=== PATIENT | male | born 1980 | race Caucasian/White ===

== ENCOUNTER 2021-01-19 00:17 | Emergency (ER) | payer SELFPAY ==
[2021-01-19 00:21] VITALS: BP 173/108; PULSE 106; RESP 16; TEMP 36.6
[2021-01-19 01:05] LABS: Basophils Absolute Auto 0.1 K/mm3 (0.0-0.1); Basophils Percent Auto 0.4 % (0.2-1.2); Eosinophils Absolute Auto 0.3 K/mm3 (0-0.3); Eosinophils Percent Auto 2.8 % (0-4.4); Hematocrit 43.7 % (42.0-52.0); Hemoglobin 14.6 g/dL (14.0-18.0); Immature Granulocyte Absolute 0.08 K/mm3 (0.00-0.031); Immature Granulocyte Percent A 0.7 % (0-0.5); Lymphocytes Absolute Auto 1.61 K/mm3 (0.9-3.2); Lymphocytes Percent Auto 14.2 % (18.3-44.2); Mean Corpuscular HGB Conc 33.4 g/dl (32-36); Mean Corpuscular Volume 95.8 fl (80-100); Mean Platelet Volume 10.1 fl (7.4-10.4); Monocytes Absolute Auto 0.9 K/mm3 (0.1-0.6); Monocytes Percent Auto 8.1 % (2.6-8.5); Neutrophils Absolute Auto 8.4 K/mm3 (1.3-6.7); Neutrophils Percent Auto 73.8 % (45.5-73.1); Platelet Count Result 224 k/mm3 (150-375); Red Blood Count 4.56 M/mm3 (4.6-6.20); Red Cell Distribution Width 12.5 % (11.5-14.5); White Blood Count 11.4 K/mm3 (4.5-10.0)
[2021-01-19 01:17] LABS: Alanine Aminotransferase 27 U/L (4-50); Albumin Level 4.2 g/dL (3.5-5.1); Alkaline Phosphatase 66 U/L (38-126); Anion Gap 4 mmol/L (8-16); Aspartate Amino Transferase 27 U/L (17-59); Bilirubin,Total 0.3 mg/dL (0.2-1.3); Blood Urea Nitrogen 24 mg/dL (9-20); Calcium 9.6 mg/dL (8.4-10.2); Carbon Dioxide 28 mmol/L (22-30); Chloride 102 mmol/L (98-107); Estimated Glomerular Filt Rate > 60; Glucose 129 mg/dL (65-110); Potassium 3.7 mmol/L (3.4-5.0); Sodium 134 mmol/L (137-145)
--- NOTE | 2021-01-19 01:24 | ED.LOWEXIN ---
HPI - Extremity Injury (Lower) General Chief Complaint: Extremity Injury, Lower Stated Complaint: lower extremity swelling Time Seen by Provider: 01/19/21 00:40 Source: patient History of Present Illness HPI Narrative: Patient presents with bilateral lower extremity swelling and pain. reorts is been present since yesterday. Reports he was working outside a lot in the [place] yesterday and cuts his legs frequently. He was trying to manage her symptoms at home with screenings and elevation however is swelling got worse so he came to the ER for evaluation. Denies fevers, chills, nausea, vomiting, diarrhea. He denies any chest pain or shortness of breath denies any prior history of kidney or liver disorders Related Data Allergies Allergy/AdvReac Type Severity Reaction Status Date / Time No Known Allergies Allergy Verified 01/19/21 00:26 Review of Systems Review of Systems: CONSTITUTIONAL: Denies fever, chills, or sweats. EYES: Denies visual changes, redness, or discharge. ENT: Denies rhinorrhea, congestion, sore throat, or otalgia. CARDIOVASCULAR: Denies chest pain, palpitations, or edema. RESPIRATORY: Denies cough or dyspnea. GASTROINTESTINAL: Denies abdominal pain, nausea, vomiting, or diarrhea. GENITOURINARY: Denies dysuria or hematuria. SKIN: Denies rash or itching. MUSCULOSKELETAL: Denies back pain, joint pain, or myalgia. NEUROLOGIC: Denies headache, numbness, dizziness, or weakness. PSYCHIATRIC: Denies anxiety or depression. All systems reviewed & are unremarkable except as noted in HPI and below PMFSH Past Medical History Medical History (Updated 01/19/21 @ 01:28 by Benjamin Swift MD) Patient denies significant medical history Social History Social History (Updated 01/19/21 @ 01:25 by Benjamin Swift MD) Substance use: never Exam Narrative: GENERAL: Well-appearing, well-nourished, and in no acute distress. HEAD: Normocephalic, atraumatic. EYES: PERRLA and EOMI. ENT: Nares clear, no rhinorrhea or epistaxis. Mucous membranes moist. NECK: Supple. No masses. No JVD CHEST: Clear to auscultation. No respiratory distress. No wheezes rales or rhonchi HEART: Regular rate and rhythm. No murmur heard. Normal peripheral pulses. ABDOMEN: Soft, nontender, nondistended, normal active bowel sounds. EXTREMITIES: Erythema and warmth to the bilateral distal lower leg associated with pitting edema. Erythema and warmth is predominant around superficial abrasions to the bilateral legs. SKIN: Warm, dry, no rash. NEURO: No focal deficits. Alert and oriented x3. PSYCH: Normal mood and affect. Course Reevaluation(s) Reevaluation #1: Patient is sleeping comfortably easily awoke results and plan reviewed with patient. Patient is comfortable with outpatient plan. 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 Date: 01/19/21 Time: 01:26 Vital Signs Vital signs: Vital Signs Temperature 36.6 C 01/19/21 00:21 Pulse Rate 106 H 01/19/21 00:21 Respiratory Rate 16 01/19/21 00:21 Blood Pressure 173/108 H 01/19/21 00:21 Temperature 36.6 C 01/19/21 00:21 Pulse Rate 106 H 01/19/21 00:21 Respiratory Rate 16 01/19/21 00:21 Blood Pressure 173/108 H 01/19/21 00:21 MDM - Extremity Injury (Lower) MDM Narrative Medical decision making narrative: H&P as above, vss, pt looks clinically well, exam warmth tenderness and edema to the bilateral lower extremities, labs with minimal elevation in WBCs otherwise clinically unremarkable, additional labs/img considered, symptomatic relief available as needed, on reevaluation pt continues to looks clinically well. Suspect cellulitis, dns osteomyelitis CHF kidney disease, liver disease. plan to tx/monitor as op w/ pcm f/u findings/plan discussed with pt, pt agree/comfortable with plan, return precautions given Lab Data Result diagrams: 01/19/21 00:56 01/19/21 00:56 Labs: Lab Results 01/19/21 01/19/21 Range/Units 00:56 00:56 WBC
== END 2021-01-19 01:41 | disposition home or self-care (01) ==
PROVIDERS: Emergency Provider Emergency Medicine
DX: L03.116 Cellulitis of left lower limb (principal); L03.115 Cellulitis of right lower limb; Z86.14 Personal history of Methicillin resistant Staphylococcus aureus infection
CPT/HCPCS: 36415; 80053; 85025; 99283

== ENCOUNTER 2021-02-17 16:38 | Emergency (ER) | payer SELFPAY ==
[2021-02-17 16:39] VITALS: BP 175/100; PULSE 92; RESP 16; TEMP 36.6; O2SAT 100
== END 2021-02-18 04:48 | disposition left against medical advice (07) ==
DX: K08.89 Other specified disorders of teeth and supporting structures (principal)
CPT/HCPCS: 99199